=== PATIENT | male | born 1965 | race Caucasian/White ===

== ENCOUNTER 2020-02-01 11:59 | Emergency (ER) | payer BC, SELFPAY ==
[2020-02-01 12:10] VITALS: BP 150/85; PULSE 65; RESP 16; TEMP 37.2; O2SAT 99
--- NOTE | 2020-02-01 12:19 | ED.SKABFB ---
HPI - Skin/Abscess/Foreign Bdy General Chief complaint: Skin/Abscess/Foreign Body Stated complaint: Splinter in hand Time Seen by Provider: 02/01/20 12:19 Source: patient and RN notes reviewed Mode of arrival: ambulatory Limitations: no limitations History of Present Illness HPI narrative: 54-year-old male presents concern for abscess with possible foreign body on his right hand. Reports has been there approximately 1 week, he is not sure if he has a foreign body such as a splinter. 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 Reports he tried poking the area with a needle and got a small amount of pus out. Denies underlying musculoskeletal pain. MD complaint: foreign body Related Data Home Medications Medication Instructions Recorded Confirmed levothyroxine [Synthroid] 150 mcg PO DAILY 02/01/20 02/01/20 Allergies Allergy/AdvReac Type Severity Reaction Status Date / Time erythromycin base Allergy Unknown Nausea and Verified 02/01/20 12:16 Vomiting Penicillins Allergy Unknown Hives Verified 02/01/20 12:16 Sulfa (Sulfonamide Allergy Unknown Rash Verified 02/01/20 12:16 Antibiotics) sulfanilamide Allergy Unknown Rash Verified 02/01/20 12:16 ERYTHROMYCIN LACTOBIONATE Allergy Unknown Nausea and Uncoded 02/01/20 12:16 Vomiting Review of Systems Review of Systems: Narrative: CONSTITUTIONAL: Denies malaise, chills, sweats, or fever. SKIN: Reports abscess on his right hand with possible foreign body MUSCULOSKELETAL: Denies muscle skeletal pain NEUROLOGIC: Denies numbness, weakness All systems reviewed & are unremarkable except as noted in HPI and below PMFSH Family History Family History (Updated 09/09/15 @ 23:19 by DOCTOR UNKNOWN) Sibling Family history of blood dyscrasia Family history of heart disease in male family member before age 55 Father Hypertension Family history of kidney disease Family history of attention deficit hyperactivity disorder (ADHD) Mother Family history of malignant neoplasm of breast in first degree relative Other Family history of cardiovascular disease Social History Social History Smoking status: Never smoker Alcohol intake: current Comments At time of signature, agree with nursing past medical, surgical, social and family history. There is no relevant family history pertinent to the presenting complaint Exam Narrative: Exam Narrative: GENERAL: Well-appearing, well-nourished, and in no acute distress. HEAD: Normocephalic EYES: PERRLA, conjunctivae clear NECK: Supple. CHEST: Speaks in full sentences. No respiratory distress. HEART: Regular rate and rhythm. Normal and equal peripheral pulses. EXTREMITIES: Right hand and digits of hand have normal strength and sensation. 5/5 strength with digit flexion, extension. Range of motion normal. No clubbing, cyanosis, or edema noted. No tenderness. Normal digital cascade with flexion of fingers, median, ulnar and radial nerve intact. Normal sensation of each side of finger. Can perform 'okay' sign, 'cross over finger test of index and middle fingers' and 'thumbs up' sign. No scissoring. Normal thumb opposition. Good capillary refill and radial pulse. Distal capillary refill less than 3 seconds. SKIN: Warn, dry, intact, pink. 1.5 cm in diameter erythematous raised area, slightly fluctuant without surrounding erythema, edema or induration, central scab noted NEURO: Alert and oriented x3. PSYCH: Normal mood and affect Course Course Emergency Course: Patient is aware of diagnosis, understands and agrees to treatment plan. Anticipatory guidance given. Patient agrees to follow-up as directed and is aware of reasons to seek care at the emergency department. Portions of this record may have been created with voice recognition software Vital Signs Vital signs: Vital Signs Temperature 98.9 F 02/01/20 12:10 Pulse Rate 65 02/01/20 12:10 Respiratory Rate 16 02/01/20 12:10 Blood Pressure 150/85 H 01/31
== END 2020-02-01 12:48 | disposition home or self-care (01) ==
PROVIDERS: Emergency Provider Nurse Practitioner
DX: L02.511 Cutaneous abscess of right hand (principal); E03.9 Hypothyroidism, unspecified
CPT/HCPCS: 10060; 99213; G0463

== ENCOUNTER 2020-10-10 11:26 | Emergency (ER) | payer BC, SELFPAY ==
[2020-10-10 11:36] VITALS: BP 150/81; PULSE 65; RESP 16; TEMP 36.7; O2SAT 100
--- NOTE | 2020-10-10 11:55 | ED.GENADULT ---
HPI - General Adult General Chief complaint: Upper Respiratory Infection Stated complaint: head congestion/cough Source: patient Mode of arrival: ambulatory Limitations: no limitations History of Present Illness HPI narrative: Patient is a 54-year-old male who presents to [facility] via POV for evaluation of upper respiratory symptoms that have been present for approximately 1 week. Additionally, he reports nasal congestion, head congestion, cough, and left ear pressure. He reports cough to be productive. He states his sputum production is small in quantity and greenish in color. He denies taking OTC meds for symptoms. Nothing improves or worsen symptoms. Patient denies known exposure to sick contacts. He also denies being vaccinated against COVID-19. Related Data Home Medications Medication Instructions Recorded Confirmed levothyroxine [Synthroid] 150 mcg PO DAILY 02/01/20 02/01/20 Allergies Allergy/AdvReac Type Severity Reaction Status Date / Time erythromycin base Allergy Unknown Nausea and Verified 10/10/20 12:06 Vomiting Penicillins Allergy Unknown Hives Verified 10/10/20 12:06 Sulfa (Sulfonamide Allergy Unknown Rash Verified 10/10/20 12:06 Antibiotics) sulfanilamide Allergy Unknown Rash Verified 10/10/20 12:07 ERYTHROMYCIN LACTOBIONATE Allergy Unknown Nausea and Uncoded 10/10/20 12:07 Vomiting Review of Systems Review of Systems: Denies history of COPD, bronchitis, asthma, and pneumonia. Denies current/past tobacco use. Pertinent negatives: fever, sweats, chills, change in appetite, fatigue, skin color changes, headache, nasal congestion/discharge, dizziness, lymphadenopathy, sinus problems, ear pain/drainage, chest pain, heart murmurs, heart palpitations, shortness of breath, wheezing, cyanosis, hemoptysis, hoarseness, orthopnea, pleuritic pain, nausea, vomiting, diarrhea, and myalgias. [facility] Past Medical History Medical History (Updated 10/10/20 @ 12:26 by LAQUITA Noyola, BC) Hypothyroidism Family History Family History Sibling Family history of blood dyscrasia Family history of heart disease in male family member before age 55 Father Hypertension Family history of kidney disease Family history of attention deficit hyperactivity disorder (ADHD) Mother Family history of malignant neoplasm of breast in first degree relative Other Family history of cardiovascular disease Social History Social History Smoking status: Never smoker Alcohol intake: current Comments I have reviewed and agree with the patient's past medical, surgical, social, and family hx as documented by the RN. There is no relevant family history pertinent to the presenting complaint. Exam Narrative: GENERAL: Well-appearing, well-nourished, and in no acute distress. HEAD: Normocephalic, atraumatic. No sinus tenderness or facial swelling appreciated. EYES: PERRLA and EOMI. No evidence of erythema, swelling, or drainage. ENT: Bilateral external ears and ear canals normal. Bilateral TMs are normal.No TM perforation. Nares clear, no rhinorrhea or epistaxis. Bilateral turbinates without erythema/ swelling. Mucous membranes moist and pink. Uvula is midline without erythema and swelling. No evidence of petechial rash, cobblestoning, lesions, ulcers, erythema, swelling, exudates, peritonsillar abscess, tenting, or drooling. Breath odor and voice normal. NECK: Supple. No Lymphadenopathy or nuchal rigidity appreciated. CHEST: Bilateral lung hanna are clear to auscultation. No respiratory distress. No evidence of cough or pleuritic cp upon examination. HEART: Regular rate and rhythm. No murmur, gallop, or rub heard. EXTREMITIES: Normal range of motion. No edema. SKIN: Warm, dry, no rash. NEURO: No focal deficits. Alert and oriented x3. Course Vital Signs Vital signs: Vi
== END 2020-10-10 12:30 | disposition home or self-care (01) ==
PROVIDERS: Emergency Provider Nurse Practitioner Family; PCP Nurse Practitioner Family
DX: U07.1 COVID-19 (principal); E03.9 Hypothyroidism, unspecified
CPT/HCPCS: 87426; 99213; C9803; G0463

== ENCOUNTER 2021-08-15 18:28 | Emergency (ER) | payer BC, SELFPAY ==
--- NOTE | ~2021-08-15 | CT_ITS ---
EXAMINATION: CT abdomen pelvis w con DATE: 08/15/2021 20:37 INDICATION: n/v abdominal pain TECHNIQUE: Computed tomography (CT) of the abdomen and pelvis was performed with 100 mL Omnipaque-300 intravenous contrast. Automated exposure control and iterative reconstruction technique were employe d. The dose-length product was 366.42 mGy-cm. COMPARISON: None. FINDINGS: Lower thorax: Multiple pulmonary nodules, the largest is in the lingula, measures 1.2 cm and has a sp iculated margin, with eccentric calcification, as such management will be suggested based on the size and appearance of this nodule and the criteria for solitary pulmonary nodules. Small hiatal hernia. Liver: Normal. Biliary/Gallbladder: Gallbladder is normal. No bile duct dilation. Pancreas: No mass or duct dilation. Spleen: Normal. Adrenals:No mass. Kidneys: No mass, stone, or hydronephrosis. GI tract: No small or large bowel dilation. Normal appendix. Diverticulosis without diverticulitis. Mesentery/Peritoneum: No ascites, mass, or free air. Retroperitoneum: No mass. Mild atherosclerotic abdominal aortic and/or arterial calcifications. Borde rline size periaortic nodes. Pelvis: Pelvic organs are within normal limits. Soft Tissues: Soft tissues and body wall unremarkable. Bones: No acute osseous finding. IMPRESSION: No acute abdominopelvic process detected. Suspicious 1.2 cm pulmonary nodule in the lingula, consider CT at 3 months, PET/CT, or tissue sampling for further evaluation. Reviewed, dictated and finalized at location K. IMPRESSION: No acute abdominopelvic process detected. Suspicious 1.2 cm pulmonary nodule in the lingula, consider CT at 3 months, PET/CT, or tissue sampling for further e valuation.
[2021-08-15 18:34] VITALS: BP 113/91; PULSE 122; RESP 16; TEMP 37.3; O2SAT 99
[2021-08-15 18:56] LABS: Basophils Absolute Auto 0.1 K/mm3 (0.0-0.1); Basophils Percent Auto 0.3 % (0.2-1.2); Eosinophils Absolute Auto 0.2 K/mm3 (0-0.3); Eosinophils Percent Auto 1.1 % (0-4.4); Hematocrit 46.9 % (42.0-52.0); Hemoglobin 15.9 g/dL (14.0-18.0); Immature Granulocyte Absolute 0.06 K/mm3 (0.00-0.031); Immature Granulocyte Percent A 0.4 % (0-0.5); Lymphocytes Absolute Auto 0.17 K/mm3 (0.9-3.2); Mean Corpuscular HGB Conc 33.9 g/dl (32-36); Mean Corpuscular Hemoglobin 31.3 pg (26-34); Mean Corpuscular Volume 92.3 fl (80-100); Mean Platelet Volume 9.5 fl (7.4-10.4); Monocytes Absolute Auto 0.8 K/mm3 (0.1-0.6); Monocytes Percent Auto 4.8 % (2.6-8.5); Neutrophils Absolute Auto 15.4 K/mm3 (1.3-6.7); Neutrophils Percent Auto 92.4 % (45.5-73.1); Platelet Count Result 214 k/mm3 (150-375); Red Blood Count 5.08 M/mm3 (4.6-6.20); White Blood Count 16.6 K/mm3 (4.5-10.0)
[2021-08-15 19:06] LABS: Alanine Aminotransferase 32 U/L (6-50); Albumin Level 4.9 g/dL (3.5-5.1); Alkaline Phosphatase 74 U/L (38-126); Anion Gap 10 mmol/L (8-16); Aspartate Amino Transferase 29 U/L (17-59); Bilirubin,Total 0.9 mg/dL (0.2-1.3); Blood Urea Nitrogen 21 mg/dL (9-20); Calcium 9.4 mg/dL (8.4-10.2); Carbon Dioxide 24 mmol/L (22-30); Chloride 105 mmol/L (98-107); Estimated CRCL calculation 65 ml/min; Estimated Glomerular Filt Rate > 60; Glucose 116 mg/dL (65-110); Lipase 74 U/L (23-300); Potassium 4.7 mmol/L (3.4-5.0); Sodium 139 mmol/L (137-145)
[2021-08-15 19:51] VITALS: BP 150/97; PULSE 108; RESP 18; O2SAT 97
--- NOTE | 2021-08-15 19:58 | ED.GENADULT ---
HPI - General Adult General Chief complaint: Nausea/Vomiting/Diarrhea Stated complaint: vomiting Time Seen by Provider: 08/15/21 19:33 History of Present Illness HPI narrative: 55-year-old male presenting to the emergency department for evaluation of nausea vomiting and mid abdominal pain. Patient states this morning when he woke up he felt fine. Patient did go to work at approximately 6 AM and by 9 AM he started to feel unwell. Patient did attempt to eat and drink during the day but states that his symptoms continued to progress. Patient states by 11 AM he had onset of nausea vomiting and did have some mid abdominal pain. Patient describes it as a cramping. Patient also reports bilateral flank pain. Patient did have a BM this morning and states thatDid not affect his symptoms. Patient was asymptomatic at the time. Patient does have past medical history: Hypothyroid. Patient does take herbal supplements. Patient denies any other significant past medical history. Patient denies any previous surgical history other than hernia repairs. Related Data Home Medications Medication Instructions Recorded Confirmed levothyroxine 150 mcg tablet 150 mcg PO DAILY 02/01/20 10/10/20 (Synthroid) Allergies Allergy/AdvReac Type Severity Reaction Status Date / Time erythromycin base Allergy Unknown Nausea and Verified 10/10/20 12:06 Vomiting Penicillins Allergy Unknown Hives Verified 10/10/20 12:06 Sulfa (Sulfonamide Allergy Unknown Rash Verified 10/10/20 12:06 Antibiotics) sulfanilamide Allergy Unknown Rash Verified 10/10/20 12:07 ERYTHROMYCIN LACTOBIONATE Allergy Unknown Nausea and Uncoded 10/10/20 12:07 Vomiting Review of Systems Review of Systems: CONSTITUTIONAL: Denies fever, chills, or sweats. EYES: Denies visual changes, redness, or discharge. ENT: Denies rhinorrhea, congestion, sore throat, or otalgia. CARDIOVASCULAR: Denies chest pain, palpitations, or edema. RESPIRATORY: Denies cough or dyspnea. GASTROINTESTINAL: See HPI GENITOURINARY: Denies dysuria or hematuria. SKIN: Denies rash or itching. MUSCULOSKELETAL: Denies back pain, joint pain, or myalgia. NEUROLOGIC: Denies headache, numbness, or weakness. [facility] Past Medical History Medical History (Updated 08/16/21 @ 00:00 by Nenita Mora) Hypothyroidism Family History Family History Sibling Family history of blood dyscrasia Family history of heart disease in male family member before age 55 Father Hypertension Family history of kidney disease Family history of attention deficit hyperactivity disorder (ADHD) Mother Family history of malignant neoplasm of breast in first degree relative Other Family history of cardiovascular disease Social History Social History Smoking status: Never smoker Alcohol intake: current Exam Narrative: APPEARANCE: Well appearing, no pain, no distress, well-nourished. HEAD: normocephalic, atraumatic. EYES: PERRLA/EOMI, conjunctivae clear. NOSE: Normal no drainage THROAT: Pharynx clear, no exudate. NECK: Supple. No adenopathy, no masses. RESPIRATORY: Airway patent, respirations nonlabored. Clear to auscultation bilaterally, no rales, rhonchi, wheezing. CARDIOVASCULAR: Mild tachycardia ABDOMINAL: Soft, nontender, nondistended, normal bowel sounds MUSCULOSKELETAL: Moves all extremities. Strength/ROM intact, No edema, No calf tenderness. NEURO: Alert. Cranial nerves II through XII intact. Grossly intact SKIN: Warm, dry. Normal Color Course Course Emergency Course: Patient did feel improved with treatment. Patient was updated on the results of his labs and imaging. Patient was also updated on the results of the CT scan showing the whole nodules. Vital Signs Vital signs: Vital Signs Temperature 99.2 F 08/15/21 18:34 Pulse Rate 122 H 08/15/21 18:34 Respiratory Rate 16
[2021-08-15 20:00] VITALS: BP 138/82; PULSE 105
[2021-08-15 20:01] VITALS: BP 136/86; PULSE 108
[2021-08-15 20:03] VITALS: BP 128/83; PULSE 125
[2021-08-15] MEDS: SODIUM CHLORIDE 0.9% IV 1,000 ML 999 ML IV CONT (20:10)
[2021-08-15 20:29] LABS: Appearance Urine Clear (Clear); Bilirubin Urine Negative (Negative); Blood Urine Negative (Negative); Color Urine Yellow (Yellow); Glucose Urine UA Negative (Negative); Ketones Urine Negative (Negative); Leukocyte Esterase Ur Negative LEU/UL (Negative); Nitrate Urine Negative (Negative); Protein Urine Negative (Negative); Urobilinogen Urine 0.2 mg/dL (<2.0)
[2021-08-15 20:30] LABS: Add Urine Microscopic? NO
[2021-08-15 21:55] VITALS: BP 130/78; PULSE 103; RESP 18; O2SAT 98
== END 2021-08-15 22:23 | disposition home or self-care (01) ==
PROVIDERS: Emergency Medicine; Emergency Provider Emergency Medicine; PCP Nurse Practitioner Family
DX: R11.2 Nausea with vomiting, unspecified (principal); E03.9 Hypothyroidism, unspecified
CPT/HCPCS: 36415; 74177; 80053; 81003; 83690; 85025; 96360; 99284; J7030; Q9967

== ENCOUNTER 2021-09-19 09:20 | Outpatient (CLI) | payer BC, SELFPAY ==
--- NOTE | ~2021-09-19 | PE_ITS ---
EXAMINATION: PET skull to mid thigh DATE: 09/19/2021 11:39 INDICATION: Nodule of lung. TECHNIQUE: Blood glucose level was 110 mg/dL. 9.570 mCi of 18-fluorodeoxyglucose (18-FDG) was adminis tered i.v. Low dose computed tomography (CT) images were acquired from the base of the brain to the p roximal thighs for attenuation correction and anatomic localization. Automated exposure control was e mployed. Dose-length product (DLP) was 656 mGy-cm. Positron emission tomography (PET) images were acq uired in the same distribution. COMPARISON: CT abdomen and pelvis 08/15/2021 FINDINGS: Head/neck: There is increased activity in the oral cavity, pharynx, major salivary glands, and glotti s without abnormal CT correlate, likely physiologic. There is increased activity in normal-sized righ t supraclavicular lymph nodes. Chest: There are innumerable perilymphatic nodules in all lobes with an upper lung predominance with increased activity. The heart size is normal. No pericardial effusion. There is a small sliding hiata l hernia. There is increased activity in left hilar and mediastinal lymph nodes, some of which are en larged. The heart size is normal. No pericardial effusion. There is increased activity in bone marrow without abnormal CT correlate, likely bone marrow stimulation. Abdomen/pelvis/proximal thighs: The liver, gallbladder, spleen, pancreas, adrenal glands, and kidneys are normal. There are no dilated loops of bowel. There is diverticulosis of the colon without eviden ce of diverticulitis. There is increased activity normal-sized bilateral external iliac lymph nodes. There is no free intraperitoneal fluid. There is increased activity in bone marrow without abnormal C T correlate, likely bone marrow stimulation. IMPRESSION: 1. Lung nodules and chest and pelvic lymphadenopathy with increased activity, most likely sarcoid. Ma lignancy is not excluded. Reviewed, dictated and finalized at location A. IMPRESSION: 1. Lung nodules and chest and pelvic lymphadenopathy with increased activity, m ost likely sarcoid. Malignancy is not excluded.
[2021-09-19 09:47] LABS: Glucose Point of Care 110 mg/dl (65-105)
== END 2021-09-19 09:21 | disposition home or self-care (01) ==
PROVIDERS: PCP Nurse Practitioner Family; Visit Provider Nurse Practitioner Family
DX: R91.1 Solitary pulmonary nodule (principal)
CPT/HCPCS: 78815; A9552

== ENCOUNTER 2024-03-30 12:33 | Emergency (ER) | payer BC, SELFPAY ==
--- NOTE | 2024-03-30 12:34 | ED_ITS ---
HPI - URI/Sore Throat General Chief Complaint: Upper Respiratory Infection Stated Complaint: Flu Symptoms Time Seen by Provider: 03/30/24 12:34 Source: patient Mode of arrival: ambulatory Limitations: no limitations History of Present Illness HPI Narrative: Leo is a 58-year-old male patient presenting to the clinic today with complaints of flu-like symptoms. He reports he is having body aches, chills, cough, sinus pressure, and congestion. He reports this has been going on for approximately 5 days. He has felt feverish. Denies any chest pain or shortness of breath. MD elicited complaint: fever, cough, rhinorrhea, nasal congestion and sinus pain Related Data Home Medications ?Medication ?Instructions ?Recorded ?Confirmed ?Last Taken ?Type levothyroxine 150 mcg tablet 150 mcg PO DAILY 02/01/20 03/30/24 Unknown History (Synthroid) Allergies Allergy/AdvReac Type Severity Reaction Status Date / Time erythromycin base Allergy Unknown Nausea and Verified 03/30/24 12:42 Vomiting Penicillins Allergy Unknown Hives Verified 03/30/24 12:42 Sulfa (Sulfonamide Allergy Unknown Rash Verified 03/30/24 12:42 Antibiotics) sulfanilamide Allergy Unknown Rash Verified 03/30/24 12:42 ERYTHROMYCIN LACTOBIONATE Allergy Unknown Nausea and Uncoded 03/30/24 12:42 Vomiting Review of Systems Review of Systems: Pertinent positives per HPI. Patient denies any fever, chills, rash, headache, visual changes, dizziness, cough, shortness of breath, chest pain, palpitations, nausea, vomiting, diarrhea, constipation, abdominal pain, or any urinary issues. PMFSH Past Medical History Medical History Hypothyroidism Family History Family History Sibling Family history of blood dyscrasia Family history of heart disease in male family member before age 55 Father Hypertension Family history of kidney disease Family history of attention deficit hyperactivity disorder (ADHD) Mother Family history of malignant neoplasm of breast in first degree relative Other Family history of cardiovascular disease Social History Social History Smoking status: Never smoker Alcohol intake: current Comments At the time of my signature, I reviewed and agree with the nursing past medical, surgical, social, and family history. There is no relevant family history pertinent to the patient complaint. Exam Narrative: General: Well-developed, well nourished, in no apparent distress Head: Normocephalic, atraumatic Eyes: Pupils equally round and reactive to light bilaterally, EOM intact, sclera and conjunctive clear, no discharge, lids normal Ears: TMs intact and congested, ear canals clear, no drainage, grossly hearing normal. Nose: Nares patent, clear nasal discharge, no inflammation, no sinus tenderness. Mouth: Oral pharynx without lesions or masses, good dentition, MMM. Postnasal drip Neck: Supple, trachea midline, no enlargement of anterior or posterior cervical nodes, no thyroid masses or goiter palpable. Cardio: Regular rate and rhythm, s1 and s2 normal, no murmur appreciated. Resp: Clear to auscultation bilaterally, no rhonchi, rales, wheezing or rubs Course Course Emergency Course: Portions of this record may have been created with voice recognition software. Level of Care: Express Care Visit Vital Signs Vital signs: Vital signs reviewed MDM - URI/Sore Throat MDM Narrative Medical decision making narrative: At the time of visit patient is resting comfortably on the exam table. Patient appears to be nontoxic. Labs: Influenza a testing is positive in the clinic today. COVID test was negative Plan: Patient has influenza A. Supportive measures were discussed with the patient and they voiced understanding discharge instructions and agrees to treatment plan. Return precautions reviewed Differential Diagnosis Differential diagnosis: Likely upper respiratory infection, otitis media, sinusitis, viral infection, bronchitis, influenza, pharyngitis and other (COVID) Discharge Plan Discharge Clinical Impression: Influenza A Patient Disposition: Home, Self-Care Condition: Stable Instructions: Antibiotic Form, Influenza (ED) Additional Instructions: Influenza A testing is positive in the clinic today. May take DayQuil/NyQuil for cold/flu symptoms Increase fluids and stay well hydrated Tylenol/motrin for pain/fever Flonase and OTC antihistamines as directed Vicks vapor rub to open sinuses Sinus rinses for congestion Cepacol spray, cough drops, throat lozenges, warm tea with honey/lemon, gargle salt water to soothe throat BRAT diet for diarrhea Clear liquids x 24 hours then advance as tolerated for nausea/vomiting Go to the ED if you develop a worsening in your condition- high fever not controlled by Tylenol or Motrin, dehydration, weakness, lethargy, shortness of breath, or chest pain. Follow up with your PCP in 3-5 days if symptoms persist. Patient Language: Tajik Prescriptions: No Action levothyroxine [Synthroid] 150 mcg tablet 150 mcg PO DAILY Follow-up/Referrals: PHYSICIAN,[facility]LLER[facility] OFFSIDER [Primary Care Provider] - Stand Alone Forms: Work/School Release IP Time of Disposition: 13:01 Quality NIHSS Nursing Documentation ED NIHSS nursing documentation: reviewed/agree
[2024-03-30 12:49] VITALS: BP 162/103; PULSE 118; RESP 18; TEMP 38.2; O2SAT 98
[2024-03-30 13:37] LABS: EDCOVIDSCREEN Negative (Negative); EDINFLUASCREEN Positive (Negative); EDINFLUBSCREEN Negative (Negative)
== END 2024-03-30 13:06 | disposition home or self-care (01) ==
PROVIDERS: Emergency Provider Nurse Practitioner Family
DX: J10.1 Influenza due to other identified influenza virus with other respiratory manifestations (principal); Z20.822 Contact with and (suspected) exposure to COVID-19; E03.9 Hypothyroidism, unspecified
CPT/HCPCS: 87426; 87804; 99212; G0463

== ENCOUNTER 2024-08-20 12:40 | Emergency (ER) | payer BC, SELFPAY ==
[2024-08-20 12:51] VITALS: BP 134/82; PULSE 85; RESP 16; TEMP 37.1; O2SAT 100
--- NOTE | 2024-08-20 13:07 | ED_ITS ---
HPI - URI/Sore Throat General Chief Complaint: Upper Respiratory Infection Stated Complaint: Bump Right Underarm/Sinus Time Seen by Provider: 08/20/24 13:00 Source: patient and RN notes reviewed Mode of arrival: ambulatory Limitations: no limitations History of Present Illness HPI Narrative: Patient presents today with a 2-3 day history of nasal congestion, sinus pressure, frontal headache, and swelling to a lymph node in the right axilla. Denies fever, sore throat, cough, shortness of breath, known sick contacts. He has tried no [id number] interventions prior to arrival. Related Data Home Medications ?Medication ?Instructions ?Recorded ?Confirmed ?Last Taken ?Type levothyroxine 150 mcg tablet 150 mcg PO DAILY 02/01/20 03/30/24 Unknown History (Synthroid) Allergies Allergy/AdvReac Type Severity Reaction Status Date / Time erythromycin base Allergy Unknown Nausea and Verified 08/20/24 12:43 Vomiting Penicillins Allergy Unknown Hives Verified 08/20/24 12:43 Sulfa (Sulfonamide Allergy Unknown Rash Verified 08/20/24 12:43 Antibiotics) sulfanilamide Allergy Unknown Rash Verified 08/20/24 12:43 ERYTHROMYCIN LACTOBIONATE Allergy Unknown Nausea and Uncoded 08/20/24 12:43 Vomiting PMFSH Past Medical History Medical History Hypothyroidism Family History Family History Sibling Family history of blood dyscrasia Family history of heart disease in male family member before age 55 Father Hypertension Family history of kidney disease Family history of attention deficit hyperactivity disorder (ADHD) Mother Family history of malignant neoplasm of breast in first degree relative Other Family history of cardiovascular disease Social History Social History Smoking status: Never smoker Alcohol intake: current Comments At time of signature, I have reviewed and agree with nursing past medical, surgical, social and family history unless otherwise noted. Please see nursing chart for further information. There is no relevant family history pertinent to the presenting complaint Exam Narrative: GENERAL: Well-appearing, well-nourished, and in no acute distress. HEAD: Normocephalic, atraumatic. EYES: EOMI. No redness or drainage. Conjunctivae normal. ENT: Mucous membranes pink and moist. Nares mildly congested. No rhinorrhea. Nasal turbinates normal. TMs normal bilaterally. Throat normal. Uvula midline. NECK: Normal AROM. Supple. No lymphadenopathy. CHEST: No respiratory distress. Clear to auscultation. HEART: Regular rate and rhythm. No murmur appreciated. EXTREMITIES: Normal range of motion. No edema. 1 x 0.5 cm superficial area of erythema and tenderness to the right axilla with a tiny pustule in the center. No surrounding induration. No fluctuance. No edema. SKIN: Warm, dry, no rash. Capillary refill normal. Normal skin turgor. NEURO: No focal deficits. Alert and oriented x3. Gait steady. PSYCH: Normal affect. No signs of depression or anxiety. Course Course Level of Care: Express Care Visit Vital Signs Vital signs: Vital Signs Temperature 98.7 F 08/20/24 12:51 Pulse Rate 85 08/20/24 12:51 Respiratory Rate 16 08/20/24 12:51 Blood Pressure 134/82 08/20/24 12:51 Pulse Oximetry 100 08/20/24 12:51 Oxygen Delivery Room Air 08/20/24 12:51 Temperature 98.7 F 08/20/24 12:51 Pulse Rate 85 08/20/24 12:51 Respiratory Rate 16 08/20/24 12:51 Blood Pressure 134/82 08/20/24 12:51 Pulse Oximetry 100 08/20/24 12:51 Oxygen Delivery Room Air 08/20/24 12:51 Reviewed MDM - URI/Sore Throat MDM Narrative Medical decision making narrative: 58-year-old male patient presents with nasal congestion symptoms and tenderness to the right axilla. Exam of right axilla shows some localized folliculitis. Recommend warm compresses and prescription for mupirocin. This time, using clinical judgment, did not feel this area had indication for I &D. Testing for Influenza and COVID was negative. Upper respiratory symptoms are likely viral in etiology. Vital signs stable. Patient has been afebrile. Recommend OTC treatment for URI symptoms with recommendation for PCP follow-up in 1 week, sooner if symptoms worsen. Differential Diagnosis Differential diagnosis: Likely upper respiratory infection, sinusitis, viral infection, influenza and other (COVID-19, lymphadenitis, abscess, folliculitis) Lab Data Attestation: I reviewed the patient's lab results. Lab results narrative: Influenza negative. COVID negative Critical Care Time Critical Care Time Critical Care Time: No Discharge Plan Discharge Clinical Impression: Upper respiratory infection, Folliculitis of right axilla Patient Disposition: Home Condition: Stable Instructions: Upper Respiratory Infection (DC), Folliculitis (ED) Additional Instructions: Your COVID-19 test and influenza tests are both negative today. Your Symptoms are likely due to a viral illness, which is not treated with antibiotics. Virus symptoms can last for up to 7-10days. Take Tylenol or ibuprofen for pain or fever. Consider an antihistamine such as Zyrtec, Claritin, or Esther, or a steroid nasal spray such as Flonase. Rest and stay hydrated. Follow up with your PCP in 7 days if symptoms are not improving. Use the mupirocin in your underarm area. Apply warm compresses. Go to the ER immediately if you develop shortness of breath, difficulty swallowing, or any other concerning symptoms. Your blood pressure was elevated above 120/80 today at Urgent Care. This puts you above the threshold for follow up. Please schedule a followup visit with your personal physician as soon as possible, for further evaluation and treatment. Even blood pressure exceeding 120/80 may indicate pre-hypertension. Patient Language: Macanese Prescriptions: New mupirocin 2 % ointment 1 applic topical BID 7 Days Qty: 22 0RF No Action levothyroxine [Synthroid] 150 mcg tablet 150 mcg PO DAILY Follow-up/Referrals: PHYSICIAN,RIDES ATTENDANT [Primary Care Provider] - Time of Disposition: 13:19
[2024-08-20 13:16] LABS: EDCOVIDSCREEN Negative (Negative); EDINFLUASCREEN Negative (Negative); EDINFLUBSCREEN Negative (Negative)
== END 2024-08-20 13:25 | disposition home or self-care (01) ==
PROVIDERS: Emergency Provider Nurse Practitioner
DX: J06.9 Acute upper respiratory infection, unspecified (principal); L73.9 Follicular disorder, unspecified; Z20.822 Contact with and (suspected) exposure to COVID-19; E03.9 Hypothyroidism, unspecified
CPT/HCPCS: 87426; 87804; 99213; G0463

== ENCOUNTER 2024-09-20 13:21 | Emergency (ER) | payer BC, SELFPAY ==
[2024-09-20 13:40] VITALS: BP 133/90; PULSE 76; RESP 16; TEMP 36.1; O2SAT 100
--- NOTE | 2024-09-20 13:59 | ED_ITS ---
HPI - URI/Sore Throat General Chief Complaint: Upper Respiratory Infection Stated Complaint: sinus inf, upper resp, swollen throat Time Seen by Provider: 09/20/24 13:40 Source: patient Mode of arrival: ambulatory Limitations: no limitations History of Present Illness HPI Narrative: Patient is a 58-year-old male who presents with sore throat. Reports it feels swollen and raw. Patient has had congestion and headache for the last few weeks but does show some improvement. Denies any fever, chills, cough, nausea, vomiting, diarrhea. Denies any shortness of breath or difficulty swallowing. Related Data Home Medications ?Medication ?Instructions ?Recorded ?Confirmed ?Last Taken ?Type levothyroxine 150 mcg tablet 150 mcg PO DAILY 02/01/20 09/20/24 Unknown History (Synthroid) Allergies Allergy/AdvReac Type Severity Reaction Status Date / Time erythromycin base Allergy Unknown Nausea and Verified 09/20/24 13:35 Vomiting Penicillins Allergy Unknown Hives Verified 09/20/24 13:35 Sulfa (Sulfonamide Allergy Unknown Rash Verified 09/20/24 13:35 Antibiotics) sulfanilamide Allergy Unknown Rash Verified 09/20/24 13:35 ERYTHROMYCIN LACTOBIONATE Allergy Unknown Nausea and Uncoded 09/20/24 13:35 Vomiting Review of Systems Review of Systems: All systems reviewed & are unremarkable except as noted in HPI and below Constitutional: Constitutional: Denies chills, Denies fatigue, Denies fever(s), Denies headache(s), Denies malaise and Denies weakness Eyes: Eyes: Denies blurry vision, Denies itchy eyes and Denies loss of vision ENT: Denies otalgia, Denies headache(s), Reports nasal congestion, Denies sinus pain, Reports sinus pressure and Reports sore throat Cardiovascular: Cardiovascular: Denies chest pain, Denies irregular heart rhythm and Denies dyspnea Respiratory: Respiratory: Denies cough and Denies dyspnea Gastrointestinal: Gastrointestinal: Denies abdominal pain, Denies diarrhea, Denies nausea and Denies vomiting Musculoskeletal: Musculoskeletal: Denies back pain, Denies myalgias and Denies arthralgias Integumentary/Breasts: Skin/Breast: Denies pruritus and Denies rash Neurologic: Denies headache(s), Denies loss of vision and Denies weakness Psychiatric: Psychiatric: Reports no additional psychiatric complaints Endocrine: Endocrine: Denies fatigue Allergic/Immunologic: Allergic/Immunologic: Denies itchy eyes PMFSH Past Medical History Medical History Hypothyroidism Family History Family History Sibling Family history of blood dyscrasia Family history of heart disease in male family member before age 55 Father Hypertension Family history of kidney disease Family history of attention deficit hyperactivity disorder (ADHD) Mother Family history of malignant neoplasm of breast in first degree relative Other Family history of cardiovascular disease Social History Social History Smoking status: Never smoker Alcohol intake: current Comments At time of signature, agree with nursing past medical, surgical, social and family history. There is no relevant family history pertinent to the presenting complaint. Exam Const: General: cooperative, healthy appearing, comfortable, no acute distress and well nourished Nutritional Appearance: well nourished Orientation/consciousness: patient oriented x3 Limitations: no limitations HENMT: Head: normal to inspection, normocephalic and atraumatic Ears: hearing grossly normal bilaterally, external ears normal, TM's normal bilaterally, EAC's normal and no periauricular adenopathy Face/Nose/Sinus: Normal external nose present, Abnormal mucous membranes and turbinates present erythematous bilateral and diffuse, normal facial exam, face symmetric and Facial tenderness on exam of face and sinuses Face and sinus: normal facial exam and face symmetric Mouth: Yes Normal oral and palatal mucosa present, Yes lip normal, Yes tongue normal, Yes Normal salivary glands and ducts present, Yes oropharynx normal and Yes moist mucous membranes Teeth and gingiva: dentition normal Throat: posterior oropharynx normal, tonsils normal and uvula midline Eyes: General: appearance normal, both eyes and all related structures Alignment and Position: alignment normal and position normal Periorbital: periorbital findings normal Eyelids: eyelids normal Pupils: Equal, round and reactive pupils present Neck: Neck: normal visual inspection, full ROM, no lymphadenopathy and supple Chest: Chest palpation & inspection: normal inspection of the chest and normal palpation of entire chest wall Resp: Effort & Inspection: normal respiratory effort and able to speak in complete sentences Auscultation: clear to auscultation bilaterally, no crackles, no rales, no rhonchi and no wheezes Cardio: Rate: regular rate Rhythm: regular rhythm Heart sounds: S1 normal heart sound present and S2 normal heart sound present GI: Inspection: normal to inspection Skin: General skin exam: normal color and no rashes or lesions noted Neuro: General: patient oriented x3 and moves all extremities Cranial nerves: Yes Equal, round and reactive pupils present Speech: normal speech Gait exam (Neuro): Normal gait present Extrem: General: normal to inspection, full ROM and no edema Psych: Appearance: grossly normal and well kempt Mental Status: mental status grossly normal Speech and movement: Normal speech and movement present Affect: normal affect Attitude: cooperative Thought process: Normal thought process present Course Course Emergency Course: Discharge instructions reviewed with patient, as well as provided in writing per nursing staff. The instructions also include specific and strict return/GO TO THE ER as well as f/u information. All questions have been answered, and the patient deny any further questions with discharge and discharge plan. Portions of this record may have been created with voice recognition software Level of Care: Express Care Visit Vital Signs Vital signs: Vital Signs Temperature 36.1 C L 09/20/24 13:40 Pulse Rate 76 09/20/24 13:40 Respiratory Rate 16 09/20/24 13:40 Blood Pressure 133/90 09/20/24 13:40 Pulse Oximetry 100 09/20/24 13:40 Temperature 36.1 C L 09/20/24 13:40 Pulse Rate 76 09/20/24 13:40 Respiratory Rate 16 09/20/24 13:40 Blood Pressure 133/90 09/20/24 13:40 Pulse Oximetry 100 09/20/24 13:40 Reviewed MDM - URI/Sore Throat MDM Narrative Medical decision making narrative: Pt well hydrated appearing, in no respiratory distress, hemodynamically stable. Recommend supportive care. The patient is stable at time of discharge the clinical impression was discussed and the patient was given the opportunity to ask questions, which were addressed as completely as possible given the information available at present. Anticipatory guidance and return to care precautions were discussed and the importance of primary care follow-up was stressed and encouraged. The patient voiced understanding of the plan, indications to return, and the need for follow-up. Exam findings show no acute concerns or changes Patient is appropriate for outpatient treatment and follow-up. Differential diagnosis considered: Cunningham virus, strep pharyngitis, allergic rhinitis, upper respiratory tract infection, sinusitis, rhinosinusitis, nasopharyngitis. viral pharyngitis, otitis media, otitis externa, otitis effusion, foreign body, cerumen impaction, viral syndrome, and influenza.? Medical Records Attestation: I reviewed the patient's medical records. Lab Data Attestation: I reviewed the patient's lab results. Labs: Lab Results 09/20/24 Range/Units 14:05 POC Grp A Strep Screen Negative (Negative) Discharge Plan Discharge Clinical Impression: Sinusitis Qualifiers: Sinusitis location: pansinusitis Chronicity: acute Recurrence: non-recurrent Qualified Code(s): J01.40 - Acute pansinusitis, unspecified Patient Disposition: Home Condition: Stable Instructions: Sinusitis (ED) Additional Instructions: Take antibiotic as prescribed. Take steroids in the morning with food. Other symptomatic treatments include: -Alternate Tylenol and Motrin per package directions for fever or pain: Tylenol 650-1000mg by mouth every 4-6 hours. Do not exceed 4000mg in 24 hours. Advil (Ibuprofen) 600 mg by mouth every 6 hours. Do not exceed 2400mg in 24 hours. 8 AM: Tylenol 11 AM: Ibuprofen 2 PM: Tylenol 5 PM: Ibuprofen 8 PM: Tylenol 11 PM: Ibuprofen 2 AM: Tylenol 5 AM: Ibuprofen -Antihistamine medication such as Benadryl at night and Zyrtec/Claritin/Esther during the day can help improve symptoms. -Use Flonase twice a day for 5 days then daily to help reduce the inflammation and dry up your sinuses. -You can also use Sudafed or Mucinex. Be sure to drink plenty of water with these medications at least 8 ounces with every dose and it is important to drink 8 to 10 glasses of water per day. Water is a natural decongestant -Eat and drink things that are easy to swallow, like tea or soup, or popsicles. -Oral rinses such as: Salt water gargles and/or may use topical anesthetic (eg. Chloraseptic spray) or lozenges to relieve dryness or throat pain). -Frequent hand washing or hand school laboratory technician is one of the best ways to prevent spread of infection. -Using a vaporizer or humidifier at night will also help thin secretions and help with coughing up phlegm. Call your Primary Care Doctor and make a follow-up appointment in 3 days. If your cough worsens, you develop a fever greater than 103, you develop shaking chills, a fast heartbeat, trouble breathing and/or feel you are are breathing much faster than usual, call your Primary Care Doctor or go to the ER. Patient Language: Serbian Prescriptions: New doxycycline monohydrate 100 mg tablet 100 mg PO BID 7 Days Qty: 14 0RF methylprednisolone [Medrol ([place]ingo)] 4 mg tablets,dose pack See Rx Instructions .ROUTE .COMPLEX Qty: 21 0RF Rx Instructions: orally per package directions fluticasone propionate [Flonase Allergy Relief] 50 mcg/actuation spray,suspension 1 spray intranasal DAILY Qty: 16 0RF Rx Instructions: administer into each nostril No Action mupirocin 2 % ointment 1 applic topical BID 7 Days Qty: 22 0RF levothyroxine [Synthroid] 150 mcg tablet 150 mcg PO DAILY Follow-up/Referrals: Jamila Ellison DO [Physician] - 3 Days Time of Disposition: 14:08
[2024-09-20 14:07] LABS: EDSTREPNEGPOS1 Negative (Negative)
== END 2024-09-20 14:14 | disposition home or self-care (01) ==
PROVIDERS: Emergency Provider Nurse Practitioner Family
DX: J01.40 Acute pansinusitis, unspecified (principal); E03.9 Hypothyroidism, unspecified
CPT/HCPCS: 87081; 87880; 99213; G0463

== ENCOUNTER 2024-11-23 09:46 | Emergency (ER) | payer BC, SELFPAY ==
[2024-11-23 09:54] VITALS: BP 123/82; PULSE 82; RESP 16; TEMP 36.3; O2SAT 99
--- NOTE | 2024-11-23 10:21 | ED.NAVMDI ---
HPI - Nausea/Vomiting/Diarrhea General Chief complaint: Nausea/Vomiting/Diarrhea Stated complaint: Stomach Pain Time Seen by Provider: 11/23/24 10:00 Source: patient and RN notes reviewed Mode of arrival: ambulatory Limitations: no limitations History of Present Illness HPI Narrative: 58-year-old male Presents Express Care complaining of nausea and diarrhea for 4 days. Patient denies any abdominal pain, fevers, body aches, vomiting, chills cup upper respiratory symptoms, cough, or any other symptoms.. Patient has been able to eat and drink without any issues. Patient reports brown watery diarrhea. Patient denies any blood or mucus in stools. Patient has not tried any [id number] for relief. Patient denies recent travel outside the country. Related Data Home Medications ?Medication ?Instructions ?Recorded ?Confirmed ?Last Taken ?Type levothyroxine 150 mcg tablet 150 mcg PO DAILY 02/01/20 09/20/24 Unknown History (Synthroid) Allergies Allergy/AdvReac Type Severity Reaction Status Date / Time erythromycin base Allergy Unknown Nausea and Verified 09/20/24 13:35 Vomiting Penicillins Allergy Unknown Hives Verified 09/20/24 13:35 Sulfa (Sulfonamide Allergy Unknown Rash Verified 09/20/24 13:35 Antibiotics) sulfanilamide Allergy Unknown Rash Verified 09/20/24 13:35 ERYTHROMYCIN LACTOBIONATE Allergy Unknown Nausea and Uncoded 09/20/24 13:35 Vomiting Review of Systems Review of Systems: CONSTITUTIONAL: Denies fever, chills, body aches, or sweats. EYES: Denies visual changes, redness, or discharge. ENT: Denies rhinorrhea, congestion, sore throat, or otalgia. CARDIOVASCULAR: Denies chest pain, palpitations, or edema. RESPIRATORY: Denies cough or dyspnea. GASTROINTESTINAL: Denies abdominal pain, vomiting, vomiting blood, bloody stools, hematochezia. Positive for nausea, diarrhea. GENITOURINARY: Denies dysuria or hematuria. SKIN: Denies rash or itching. MUSCULOSKELETAL: Denies back pain, joint pain, or myalgia. NEUROLOGIC: Denies headache, numbness, or weakness. PSYCHIATRIC: Denies anxiety or depression. All other systems reviewed are negative, except as documented in HPI. [facility] Past Medical History Medical History Hypothyroidism Family History Family History Sibling Family history of blood dyscrasia Family history of heart disease in male family member before age 55 Father Hypertension Family history of kidney disease Family history of attention deficit hyperactivity disorder (ADHD) Mother Family history of malignant neoplasm of breast in first degree relative Other Family history of cardiovascular disease Social History Social History Smoking status: Never smoker Alcohol intake: current Exam Narrative: GENERAL: This is a well-nourished, well-developed adult, in no apparent distress. They are non ill-appearing, nontoxic appearing. HEAD: normocephalic, atraumatic. EYES: Sclera clear/white. Vision is grossly intact. Conjunctiva normal bilaterally. Extraocular movements intact. EARS: External ears normal, Hearing grossly intact. NOSE: External nose normal THROAT: Mucous membranes moist NECK: Normal range of motion CARDIOVASCULAR: Regular rate and rhythm. Normal S1-S2. No clicks, gallops, rubs, or murmurs. RESPIRATORY: Respiratory rate normal, respiratory effort nonlabored, no respiratory distress. Lung sounds clear to auscultation. Breath sounds equal bilaterally. No adventitious lung sounds. GASTROINTESTINAL: Abdomen soft, flat, non-tender, nondistended. Bowel sounds are active. No hepato-splenomegaly, or palpable masses. No guarding or rigidity. No rebound tenderness. SKIN: warm, Dry, intact with no suspicious lesions or rash, good texture and turgor. NEURO: awake, alert, and oriented to person, place and time. There were no obvious focal neurologic abnormalities. EXTREMITIES: No joint tenderness, effusion, or edema noted. BACK: Nontender without deformity. No CVA tenderness. Course Course Emergency Course: Portions of this record may have been created with voice recognition software Level of Care: Express Care Visit Vital Signs Vital signs: Vital Signs Temperature 97.3 F L 11/23/24 09:54 Pulse Rate 82 11/23/24 09:54 Respiratory Rate 16 11/23/24 09:54 Blood Pressure 123/82 11/23/24 09:54 Pulse Oximetry 99 11/23/24 09:54 Oxygen Delivery Room Air 11/23/24 09:54 Temperature 97.3 F L 11/23/24 09:54 Pulse Rate 82 11/23/24 09:54 Respiratory Rate 16 11/23/24 09:54 Blood Pressure 123/82 11/23/24 09:54 Pulse Oximetry 99 11/23/24 09:54 Oxygen Delivery Room Air 11/23/24 09:54 MDM - Nausea/Vomiting/Diarrhea MDM Narrative Medical decision making narrative: Symptoms likely from a viral gastroenteritis. Patient does not appear clinically dehydrated. Patient has been able to keep fluids down been eating appropriately. Discussed use of Pepto-Bismol for diarrhea, advised patient is may make his stool black and green appearing. Discussed physical exam findings. Advised supportive measures and signs/symptoms to go to the ER. Pt is appropriate for outpt treatment and f/u. Differential Diagnosis Differential diagnosis: Likely traveler's diarrhea, food poisoning and gastroenteritis Discharge Plan Discharge Clinical Impression: Diarrhea Qualifiers: Diarrhea type: presumed infectious Qualified Code(s): R19.7 - Diarrhea, unspecified Patient Disposition: Home Condition: Stable Instructions: Gastroenteritis (ED) Additional Instructions: It is likely have a viral gastroenteritis. This is normally a self-limiting condition or resolve within 24-48 hours. However sometimes symptoms may linger on up to 7 days. You may take Pepto-Bismol as needed to help control the diarrhea. Recommend hydration with plenty of fluids electrolyte supplementation such as Pedialyte. Follow-up PCP in 3-5 days. If you are unable to keep anything down, developed abdominal pain, fevers, uncontrollable diarrhea, concerns of dehydration, or any other concerns please go to the ER immediately. Patient Language: Chinese Prescriptions: No Action levothyroxine [Synthroid] 150 mcg tablet 150 mcg PO DAILY Follow-up/Referrals: PHYSICIAN,CHEMISTRY LECTURER [Primary Care Provider, Internal Medicine] Stand Alone Forms: Work/School Release IP Time of Disposition: 10:19
== END 2024-11-23 10:24 | disposition home or self-care (01) ==
DX: R19.7 Diarrhea, unspecified (principal); E03.9 Hypothyroidism, unspecified
CPT/HCPCS: 99211; G0463

== ENCOUNTER 2024-12-16 14:16 | Emergency (ER) | payer BC, SELFPAY ==
--- NOTE | 2024-12-16 14:19 | ED.GENADULT ---
HPI - General Adult General Chief complaint: Upper Respiratory Infection Stated complaint: Upper Respiratory Symptoms Time Seen by Provider: 12/16/24 14:19 Source: patient Mode of arrival: ambulatory Limitations: no limitations History of Present Illness HPI narrative: Pt is a 59 y/o male presenting with c/o URI sx. Sx reported include rhinorrhea, nasal congestion, cough. Sx began 2 days ago. Reports preceding GI virus--N,V have resolved, still experiencing diarrhea. Reports (2) episodes of nonbloody, non-mucous containing diarrhea today. Reports work up of GI sx at ER last week, unremarkable, dx with virus. No tx initiated [employer]. NO known exposure to COVID, FLU, STREP, PNA. States his grandkids have similar sx. No additional complaints. Related Data Home Medications ?Medication ?Instructions ?Recorded ?Confirmed ?Last Taken ?Type levothyroxine 150 mcg tablet 150 mcg PO DAILY 02/01/20 12/16/24 Unknown History (Synthroid) Allergies Allergy/AdvReac Type Severity Reaction Status Date / Time erythromycin base Allergy Unknown Nausea and Verified 12/16/24 14:23 Vomiting Penicillins Allergy Unknown Hives Verified 12/16/24 14:23 Sulfa (Sulfonamide Allergy Unknown Rash Verified 12/16/24 14:23 Antibiotics) sulfanilamide Allergy Unknown Rash Verified 12/16/24 14:23 Review of Systems Review of Systems: CONSTITUTIONAL: Denies body aches, fever, chills, or sweats. EYES: Denies visual changes, redness, or discharge. ENT: reports rhinorrhea, congestion, denies sore throat, or otalgia. CARDIOVASCULAR: Denies chest pain, palpitations, or edema. RESPIRATORY: reports cough denies dyspnea. GASTROINTESTINAL: Reports diarrhea Denies abdominal pain, nausea, vomiting. GENITOURINARY: Denies dysuria or hematuria. SKIN: Denies rash, itching, or wounds. MUSCULOSKELETAL: Denies back pain, joint pain, or myalgia. NEUROLOGIC: Denies headache, numbness, tingling, or weakness. PSYCH: Denies depression or anxiety. All systems reviewed & are unremarkable except as noted in HPI and below PMFSH Past Medical History Medical History Hypothyroidism Family History Family History Sibling Family history of blood dyscrasia Family history of heart disease in male family member before age 55 Father Hypertension Family history of kidney disease Family history of attention deficit hyperactivity disorder (ADHD) Mother Family history of malignant neoplasm of breast in first degree relative Other Family history of cardiovascular disease Social History Social History Alcohol intake: current Exam Narrative: GENERAL: Well-appearing, well-nourished, and in no acute distress. HEAD: Normocephalic, atraumatic. EYES: EOMI. No redness or drainage. Conjunctivae normal. ENT: Mucous membranes pink and moist. Nares clear. No rhinorrhea. TMs normal bilaterally. Throat normal. Uvula midline. NECK: Normal AROM. Supple. No lymphadenopathy. CHEST: No respiratory distress. Clear to auscultation. HEART: Regular rate and rhythm. No murmur appreciated. Normal peripheral pulses. ABDOMEN: Soft, nontender, nondistended, normal active bowel sounds. MUSCULOSKELETAL: No bony tenderness. EXTREMITIES: Normal range of motion. No edema. SKIN: Warm, dry, no rash. Capillary refill normal. Normal skin turgor. NEURO: No focal deficits. Alert and oriented x3. Gait steady. PSYCH: Normal affect. No signs of depression or anxiety. Course Course Level of Care: Express Care Visit Vital Signs Vital signs: Vital Signs Temperature 97.1 F L 12/16/24 14:26 Pulse Rate 102 H 12/16/24 14:26 Respiratory Rate 16 12/16/24 14:26 Blood Pressure 136/90 12/16/24 14:26 Pulse Oximetry 100 12/16/24 14:26 Temperature 97.1 F L 12/16/24 14:26 Pulse Rate 102 H 12/16/24 14:26 Respiratory Rate 16 12/16/24 14:26 Blood Pressure 136/90 12/16/24 14:26 Pulse Oximetry 100 12/16/24 14:26 Medical Decision Making [facility] Narrative Medical decision making narrative: Discussed elevated blood pressure readings with patient and advised daily BP monitoring and f/u with PCP if persisting. Vital Signs Vital Signs: Vital Signs Temperature 97.1 F L 12/16/24 14:26 Pulse Rate 102 H 12/16/24 14:26 Respiratory Rate 16 12/16/24 14:26 Blood Pressure 136/90 12/16/24 14:26 Pulse Oximetry 100 12/16/24 14:26 Temperature 97.1 F L 12/16/24 14:26 Pulse Rate 102 H 12/16/24 14:26 Respiratory Rate 16 12/16/24 14:26 Blood Pressure 136/90 12/16/24 14:26 Pulse Oximetry 100 12/16/24 14:26 Lab Data Lab results reviewed: Yes I reviewed the patient's lab results. Discharge Plan Discharge Clinical Impression: Elevated blood pressure reading in office without diagnosis of hypertension Upper respiratory infection Qualifiers: URI type: unspecified URI Qualified Code(s): J06.9 - Acute upper respiratory infection, unspecified Diarrhea Qualifiers: Diarrhea type: unspecified type Qualified Code(s): R19.7 - Diarrhea, unspecified Patient Disposition: Home Condition: Stable Instructions: Antibiotic Form, Viral Syndrome (ED) Additional Instructions: Go straight to ER should your symptoms become worse or should any new symptoms develop Patient Language: Irish Prescriptions: No Action levothyroxine [Synthroid] 150 mcg tablet 150 mcg PO DAILY Follow-up/Referrals: PHYSICIAN,OUTSIDE PHYSICAL DAMAGE APPRAISER [Primary Care Provider, Internal Medicine] - 12/17/24 Stand Alone Forms: Work/School Release IP Time of Disposition: 14:46
[2024-12-16 14:26] VITALS: BP 136/90; PULSE 102; RESP 16; TEMP 36.2; O2SAT 100
[2024-12-16 14:50] LABS: EDCOVIDSCREEN Negative (Negative); EDINFLUASCREEN Negative (Negative); EDINFLUBSCREEN Negative (Negative)
== END 2024-12-16 14:49 | disposition home or self-care (01) ==
PROVIDERS: Emergency Provider Registered Nurse
DX: R03.0 Elevated blood-pressure reading, without diagnosis of hypertension (principal); J06.9 Acute upper respiratory infection, unspecified; R19.7 Diarrhea, unspecified; Z20.822 Contact with and (suspected) exposure to COVID-19; E03.9 Hypothyroidism, unspecified
CPT/HCPCS: 87426; 87804; 99212; G0463